=== PATIENT | female | born 1970 | race Caucasian/White ===

== ENCOUNTER 2016-09-22 18:02 | Emergency (ER) | payer MEDICAID, SELFPAY ==
[2016-09-22] MEDS ORDERED: Albuterol/Ipratropium 3.0-0.5 MG/3 ML Neb Soln NEB ONE (19:12)
[2016-09-22] MEDS ORDERED: Albuterol/Ipratropium 3.0-0.5 MG/3 ML Neb Soln ONE (19:14)
[2016-09-22] MEDS ORDERED: predniSONE 20 MG Tab PO ONE (19:27)
[2016-09-22] MEDS ORDERED: Codeine/guaiFENesin 100mg-10 MG/5 ML Soln 118 ML Bottle PO ONE (19:27)
[2016-09-22 20:07] VITALS: BP 116/69
--- NOTE | 2016-09-22 22:00 | ER ---
DATE SEEN: 09/22/2016 TIME SEEN: 1915 hours. CHIEF COMPLAINT: Cough. HISTORY OF PRESENT ILLNESS: This is a 46-year-old female with a cough for 3-4 days. Was in the clinic today treated with azithromycin. Symptoms are worse, coughing causing a headache, productive, and wheezy. She also complains of diarrhea for that period of time. REVIEW OF SYSTEMS: Chronic back pain. PAST MEDICAL HISTORY: Anxiety disorder, chronic back pain, type 2 diabetes, obesity, tobacco abuse. PHYSICAL EXAMINATION: GENERAL: Moderately ill. VITAL SIGNS: Temp is 98, pulse is 79, oxygenation 97% on room air. ENT: Negative. NECK: Supple. CHEST: Some scattered rhonchi. EXTREMITIES: No peripheral edema. MENTAL STATUS: Alert. SKIN: Clammy. LABORATORY DATA: Creatinine 1.4. BNP is less than 5. White cell count 7.0. Chest x-ray was unremarkable. IMPRESSIONS: 1. Acute bronchitis. 2. Diarrhea. 3. Type 2 diabetes. PLAN: One time DuoNeb, then Robitussin with codeine 10 mL every 6 hours p.r.n. and prednisone is 20 mg b.i.d. I advised her to see a physician by Monday. Smoking cessation was also discussed. /[id number] JAMMI[address]/LUZ MARINA
--- NOTE | 2016-09-23 14:07 | CR ---
INDICATION: Chest congestion. CHEST: PA and lateral views of the chest were obtained 09/22/2016. No comparisons were available. Evidence of exogenous obesity is noted. Somewhat flattened diaphragm leaves on the lateral view and increased AP diameter with hyperaeration suggests COPD. What appear to be healed fractures are noted posterolaterally on the left. The heart appeared normal in size and shape. The aorta may be slightly calcified in the arch area. Moderate hypertrophic degenerative changes are noted in the mid thoracic spine with mild to moderate dextroconvex scoliosis of the lower thoracic spine. A definite active infiltrate or effusion was not identified. No evidence of CHF is seen. IMPRESSION: 1. No definite acute process. 2. COPD. 3. ASD aorta. 4. DJD and scoliosis spine. 5. Exogenous obesity. MTDD
== END 2016-09-22 19:40 | disposition home or self-care (01) ==
LOC: FB.ED 18:02
DX: J20.9 Acute bronchitis, unspecified (principal); R19.7 Diarrhea, unspecified; E11.9 Type 2 diabetes mellitus without complications; F41.9 Anxiety disorder, unspecified; E66.9 Obesity, unspecified
CPT/HCPCS: 36415; 71020; 80053; 83880; 85025; 94640; 99285; J7620; A9270-GY

== ENCOUNTER 2019-08-09 19:11 | Emergency (ER) | payer MEDICAID ==
[2019-08-09] MEDS ORDERED: Albuterol 8 GM Inhaler INH ONE (19:12)
[2019-08-09] MEDS ORDERED: Ondansetron 4 MG Tab.DIS PO ONE (19:12)
--- NOTE | 2019-08-09 19:32 | EDM.PDOC ---
ED HPI GENERAL MEDICAL PROBLEM - General Stated Complaint: SOB Time Seen by Provider: 08/09/19 19:32 Source of Information: Reports: Patient History Limitations: Reports: No Limitations - History of Present Illness INITIAL COMMENTS - FREE TEXT/NARRATIVE: 49-year-old female who reports onset of headache about 3-4 days ago and she had a headache with some nasal congestion. The cough and nasal congestion get worse and then for the past 2 days she has had vomiting with diarrhea. The vomiting essentially resolved yesterday but she has had 30 plus diarrhea stools today. She has also had subjective fever with chills. She had vomiting 6 or 7 yesterday. She has been able to keep liquids down today. She also has had increasing cough with wheezing and difficulty breathing today. She has also felt increasingly more weak and dizzy. She finds it hard to even walk or get around because of this. Today she has had chest pain essentially all through the day. It is left-sided and sharp. She rates the pain as a 6/10. It does not radiate. It is worse with breathing and activity. It seems to have come on worse with her cough. She was actually seen initially in the walk-in clinic and was brought over from walking clinic to the emergency department for evaluation. They did do an influenza screen over there and that was negative. There are no other associated signs or symptoms. There are no other modifying factors. Onset: Other (3-4 days ago) Duration: Getting Worse Location: Reports: Chest, Generalized (Body aches) Quality: Reports: Ache, Sharp Severity: Moderate (to severe) Improves with: Reports: Rest Worsens with: Reports: Breathing, Other (Activity), Movement Context: Reports: Other (As above) Associated Symptoms: Reports: Chest Pain, Cough, Diaphoresis (Sweats at times, worse today.), Fever/Chills, Headaches, Loss of Appetite, Malaise, Nausea/ Vomiting, Shortness of Breath, Weakness Treatments [employer]LECT[employer] DES[employer]ER: Reports: Acetaminophen chest Pain Score (Numeric/FACES): 4 - Related Data Allergies Allergy/AdvReac Type Severity Reaction Status Date / Time No Known Allergies Allergy Verified 05/08/16 00:04 Home Meds: Home Meds Lisinopril [Zestril] 100 mg PO DAILY 07/20/13 [History] Sertraline HCl [Zoloft] 200 mg PO DAILY 07/20/13 [History] Simvastatin [Zocor] 20 mg PO DAILY 07/20/13 [History] Zolpidem Tartrate [Ambien] 5 mg PO BEDTIME 07/20/13 [History] hydrOXYzine pamoate [Vistaril] 100 mg PO BEDTIME 07/20/13 [History] metFORMIN [Glucophage] 1,000 mg PO BID 07/20/13 [History] glipiZIDE [Glipizide ER] 10 mg PO DAILY 11/25/15 [History] Pregabalin [Lyrica] 50 mg PO BID 05/08/16 [History] Azithromycin 250 mg PO DAILY 09/22/16 [History] Insulin Glarg,Human.Rec.Analog [Lantus Solostar] 31 units SQ DAILY 09/22/16 [ History] Ondansetron 4 mg PO Q8HR PRN 09/22/16 [History] clonazePAM [Clonazepam] 1 mg PO TID PRN 09/22/16 [History] Doxycycline Monohydrate 100 mg PO BID 7 Days #14 tablet 08/09/19 [Rx] Loperamide [Imodium] 2 mg PO ASDIRECTED #10 cap 08/09/19 [Rx] predniSONE [Prednisone] 50 mg PO QAM #5 tablet 08/09/19 [Rx] Past Medical History HEENT History: Reports: Impaired Vision Cardiovascular History: Reports: Heart Murmur, High Cholesterol, Hypertension Gastrointestinal History: Reports: GERD Genitourinary History: Reports: Diabetic Nephropathy Musculoskeletal History: Reports: Gout Endocrine/Metabolic History: Reports: Diabetes, Type II - Past Surgical History GI Surgical History: Reports: Cholecystectomy, ERCP Female Surgical History: Reports: Section (2) Neurological Surgical History: Reports: Lumbar Spine Musculoskeletal Surgical History: Reports: ORIF (Of left femur) Other Musculoskeletal Surgeries/Procedures:: back fusion Social & Family History - Tobacco Use Smoking Status *Q: Current Every Day Smoker - Caffeine Use Caffeine Use: Reports: Coffee - Alcohol Use Alcohol Use History: No - Living Situation & Occupation Occupation: Disabled Social History Comment: She is here with her daughter. ED ROS GENERAL - Review of Systems Review Of Systems: See Below Constitutional: Reports: Fever, Chills, Diaphoresis, Decreased Appetite HEENT: Reports: Other Respiratory: Reports: Shortness of Breath, Wheezing, Cough (Physical congestion) Cardiovascular: Reports: Chest Pain, Dyspnea on Exertion, Lightheadedness Endocrine: Reports: Fatigue GI/Abdominal: Reports: Diarrhea, Nausea, Vomiting : Reports: No Symptoms Musculoskeletal: Reports: Other (Body aches) Skin: Reports: No Symptoms Neurological: Reports: Headache Hematologic/Lymphatic: Reports: No Symptoms Immunologic: Reports: No Symptoms ED EXAM, GENERAL - Physical Exam Exam: See Below Exam Limited By: No Limitations General Appearance: Alert, Moderate Distress, Obese, Other (But she is awake, alert and appropriate.) Eye Exam: Bilateral Eye: EOMI, Normal Inspection, PERRL Ears: Normal External Exam, Hearing Grossly Normal Ear Exam: Bilateral Ear: Auricle Normal Nose: No Blood, Nasal Drainage Throat/Mouth: Normal Voice, No Airway Compromise, Other (Dry mucous membranes) Head: Atraumatic, Normocephalic Neck: Normal Inspection, Supple, Non-Tender, Full Range of Motion Respiratory/Chest: No Respiratory Distress, No Accessory Muscle Use, Chest Non- Tender, Wheezing (Bilaterally), Other (Air movement was somewhat decreased) Cardiovascular: Normal Peripheral Pulses, Regular Rate, Rhythm, No JVD, No Murmur Peripheral Pulses: 2+: Radial (L), Radial (R), Dorsalis Pedis (L), Dorsalis Pedis (R) GI/Abdominal: Normal Bowel Sounds, Soft, Non-Tender, No Mass Back Exam: Normal Inspection Extremities: Normal Inspection, Normal Range of Motion, Non-Tender, No Pedal Edema, Normal Capillary Refill Neurological: Alert, Oriented, CN II-XII Intact, Normal Cognition, No Motor/ Sensory Deficits Skin Exam: Warm, Intact, Normal Color, No Rash, Diaphoretic (Slight) EKG INTERPRETATION EKG Date: 08/09/19 Time: 19:17 Rhythm: NSR Rate (Beats/Min): 89 [place]: LAD-Left [place] Deviation P-Wave: Present QRS: Normal ST-T: Other (Poor R-wave progression. Normal ST-T's) QT: Normal Comparison: NA - No Prior EKG Course - Vital Signs Last Recorded V/S: Last Vital Signs Temp 36.7 C 08/09/19 23:30 Pulse 86 08/09/19 23:30 Resp 19 08/09/19 23:30 BP 129/72 08/09/19 23:30 Pulse Ox 99 08/09/19 23:30 - Orders/Labs/Meds Orders: Active Orders 24 hr Category Date Time Status EKG Documentation Completion [RC] ASDIRECTED Care 08/09/19 19:49 Active RT Aerosol Therapy [RC] ASDIRECTED Care 08/09/19 19:51 Active Chest 2V [CR] Stat Exams 08/09/19 19:48 Taken Peripheral IV Insertion Adult [OM.PC] Routine Oth 08/09/19 19:48 Ordered EKG 12 Lead [EK] Routine Ther 08/09/19 19:48 Ordered Labs: Laboratory Tests 08/09/19 08/09/19 08/09/19 Range/Units 20:00 20:00 20:00 WBC 5.9 (4.5-12.0) X10-3/uL RBC 5.05 (3.23-5.20) x10(6)uL Hgb 15.3 (11.5-15.5) g/dL Hct 45.3 (30.0-51.3) % MCV 89.7 (80-96) fL MCH 30.2 (27.7-33.6) pg MCHC 33.7 (32.2-35.4) g/dL RDW 14.5 (11.5-15.5) % Plt Count 196 (125-369) X10(3)uL MPV 8.9 (7.4-10.4) fL Neut % (Auto) 65.3 (46-82) % Lymph % (Auto) 26.2 (13-37) % [place] % (Auto) 4.8 (4-12) % Eos % (Auto) 3 (1.0-5.0) % Baso % (Auto) 0 (0-2) % Neut # (Auto) 3.9 (1.6-8.3) # Lymph # (Auto) 1.5 (0.6-5.0) # [place] # (Auto) 0.3 (0.0-1.3) # Eos # (Auto) 0.2 (0.0-0.8) # Baso # (Auto) 0.0 (0.0-0.2) # Sodium 139 (135-145) mmol/L Potassium 3.9 (3.5-5.3) mmol/L Chloride 103 (100-110) mmol/L Carbon Dioxide 21 (21-32) mmol/L BUN 22 H (7-18) mg/dL Creatinine 1.3 H (0.55-1.02) mg/dL Est Cr Clr Drug Dosing 47.62 mL/min Estimated GFR (MDRD) 44 L (>60) BUN/Creatinine Ratio 16.9 (9-20) Glucose 187 H (80-116) mg/dL Calcium 8.8 (8.6-10.2) mg/dL Magnesium 0.9 L* (1.8-2.5) mg/dL Total Bilirubin 0.4 (0.1-1.3) mg/dL AST 41 H (5-25) IU/L ALT 41 H (12-36) U/L Alkaline Phosphatase 47 L (56-112) IU/L Troponin I 11.6 (4.0-60.3) pg/mL C-Reactive Protein 4.7 H* (0.5-0.9) mg/dL NT-Pro-B Natriuret Pep 64 (<=125) pg/mL Total Protein 7.9 (6.0-8.0) g/dL Albumin 3.4 L (3.5-5.2) g/dL Globulin 4.5 g/dL Albumin/Globulin Ratio 0.8 Urine HCG, Qual (NEGATIVE) 08/09/19 Range/Units 20:20 WBC (4.5-12.0) X10-3/uL RBC (3.23-5.20) x10(6)uL Hgb (11.5-15.5) g/dL Hct (30.0-51.3) % MCV (80-96) fL MCH (27.7-33.6) pg MCHC (32.2-35.4) g/dL RDW (11.5-15.5) % Plt Count (125-369) X10(3)uL MPV (7.4-10.4) fL Neut % (Auto) (46-82) % Lymph % (Auto) (13-37) % [place] % (Auto) (4-12) % Eos % (Auto) (1.0-5.0) % Baso % (Auto) (0-2) % Neut # (Auto) (1.6-8.3) # Lymph # (Auto) (0.6-5.0) # [place] # (Auto) (0.0-1.3) # Eos # (Auto) (0.0-0.8) # Baso # (Auto) (0.0-0.2) # Sodium (135-145) mmol/L Potassium (3.5-5.3) mmol/L Chloride (100-110) mmol/L Carbon Dioxide (21-32) mmol/L BUN (7-18) mg/dL Creatinine (0.55-1.02) mg/dL Est Cr Clr Drug Dosing mL/min Estimated GFR (MDRD) (>60) BUN/Creatinine Ratio (9-20) Glucose (80-116) mg/dL Calcium (8.6-10.2) mg/dL Magnesium (1.8-2.5) mg/dL Total Bilirubin (0.1-1.3) mg/dL AST (5-25) IU/L ALT (12-36) U/L Alkaline Phosphatase (56-112) IU/L Troponin I (4.0-60.3) pg/mL C-Reactive Protein (0.5-0.9) mg/dL NT-Pro-B Natriuret Pep (<=125) pg/mL Total Protein (6.0-8.0) g/dL Albumin (3.5-5.2) g/dL Globulin g/dL Albumin/Globulin Ratio Urine HCG, Qual Negative (NEGATIVE) Meds: Medications Discontinued Medications Generic Name Dose Route Start Last Admin Trade Name Freq PRN Reason Stop Dose Admin Albuterol/Ipratropium 3 ml 08/09/19 19:50 08/09/19 20:04 Duoneb 3.0-0.5 Mg/3 Ml NEB 08/09/19 19:51 3 ml ONETIME ONE Administration Doxycycline Hyclate 100 mg 08/09/19 23:05 08/09/19 23:25 Vibra-Tabs PO 08/09/19 23:06 100 mg ONETIME ONE Administration Sodium Chloride 500 mls @ 999 mls/hr 08/09/19 19:50 08/09/19 20:04 Normal Saline IV 08/09/19 20:20 999 mls/hr .BOLUS ONE Administration Sodium Chloride 1,000 mls @ 100 mls/hr 08/09/19 20:00 08/09/19 20:52 Normal Saline IV 100 mls/hr ASDIRECTED VIKAS Administration Magnesium Sulfate 2 gm/ Premix 50 mls @ 150 mls/hr 08/09/19 20:52 08/09/19 21 :09 IV 08/09/19 21:11 150 mls/hr ONETIME ONE Administration Sodium Chloride 1,000 mls @ 999 mls/hr 08/09/19 20:52 08/09/19 21:16 Normal Saline IV 08/09/19 21:52 999 mls/hr .BOLUS ONE Administration Magnesium Sulfate 2 gm/ Premix 50 mls @ 150 mls/hr 08/09/19 22:37 08/09/19 22 :43 IV 08/09/19 22:56 150 mls/hr ONETIME ONE Administration Loperamide HCl 4 mg 08/09/19 23:05 08/09/19 23:25 Imodium PO 08/09/19 23:06 4 mg ONETIME ONE Administration Methylprednisolone Sodium Succinate 125 mg 08/09/19 19:51 08/09/19 20:04 Solu-Medrol IVPUSH 08/09/19 19:52 125 mg ONETIME ONE Administration Ondansetron HCl 4 mg 08/09/19 19:50 08/09/19 20:04 Zofran IVPUSH 08/09/19 19:51 4 mg ONETIME ONE Administration Sodium Chloride 10 ml 08/09/19 19:48 08/09/19 20:05 Saline Flush FLUSH 10 ml ASDIRECTED PRN Administration Keep Vein Open - Radiology Interpretation Free Text/Narrative:: Portable chest x-ray showed no acute disease. - Re-Assessments/Exams Free Text/Narrative Re-Assessment/Exam: 08/09/19 22:20: Patient feels much improved. She has good color to her face. She is in no respiratory distress. Her pulse rate is in the 80s and her O2 saturations 97% on room air. Her magnesium level was quite low and she has received 2 g are ready IV and I we'll now give her 2 more grams of magnesium IV. 08/09/19 23:00: The second 2 g of magnesium are infusing at this point. She is breathing well. She has taken by mouth without any problems. She has had no more diarrhea while here. She appears to be having an exacerbation of COPD with hypomagnesemia. The magnesium has been corrected with IV supplementation. Her breathing is improved with the nebulizer treatment and the Solu-Medrol IV. She was also dehydrated and we have corrected that with IV fluids. The plan will be to discharge the patient. She was given doxycycline 100 mg and Imodium 4 mg by mouth prior to her discharge. I will send prescriptions for doxycycline, prednisone, Imodium. I will send take home packs of Zofran 4 mg ODT and albuterol inhaler. We will also send her home with a spacer to use with the albuterol inhaler. She is improved and stable for discharge at this point. I have strongly advised her to stop smoking cigarettes. She is also to follow her blood sugars more closely while she is on the prednisone. Departure - Departure Time of Disposition: 23:20 Disposition: Home, Self-Care 01 Condition: Good (Improved) Clinical Impression: COPD exacerbation, Dehydration, moderate, Hypomagnesemia, Vomiting and diarrhea - Discharge Information Prescriptions: Doxycycline Monohydrate 100 mg PO BID 7 Days #14 tablet Loperamide [Imodium] 2 mg PO ASDIRECTED #10 cap predniSONE [Prednisone] 50 mg PO QAM #5 tablet Instructions: Chronic Obstructive Pulmonary Disease Exacerbation, [id number] , Nausea and Vomiting, Adult, [id number], How to Use a Metered Dose Inhaler, Dehydration, Adult, [id number], Diarrhea, Adult, [id number], Probiotics Referrals: Lacie Chaney GENETICIST [Primary Care Provider] - Forms: ED Department Discharge Additional Instructions: Your blood tests were reassuringly normal except for a low magnesium level. Your influenza screen was negative. Your chest x-ray showed no pneumonia. You were dehydrated and you improved with the IV fluid therapy as well as the magnesium replacement therapy and the therapy for your wheezing associated with the exacerbation of your COPD. You should increase your fluid intake. You should rest. Stop smoking. Medication as prescribed (doxycycline, prednisone, Imodium, Zofran 4 mg ODT, albuterol inhaler). Be sure to use the spacer that we provided you with the albuterol inhaler to make it more effective. You should also take probiotics daily for the next 10-14 days. Follow-up with your primary doctor. Back to the emergency department for worse breathing, unrelenting vomiting, uncontrolled diarrhea or any other concerning sign or symptom. Sepsis Event Note - Focused Exam Vital Signs: Vital Signs Temp Pulse Resp BP Pulse Ox 08/09/19 23:30 36.7 C 86 19 129/72 99 08/09/19 19:11 36.2 C 96 16 112/65 97 Date Exam was Performed: 08/10/19 Time Exam was Performed: 01:30 - My Orders Last 24 Hours: My Active Orders 08/09/19 19:48 Chest 2V [CR] Stat Peripheral IV Insertion Adult [OM.PC] Routine EKG 12 Lead [EK] Routine 08/09/19 19:49 EKG Documentation Completion [RC] ASDIRECTED 08/09/19 19:51 RT Aerosol Therapy [RC] ASDIRECTED - Assessment/Plan Last 24 Hours: My Active Orders 08/09/19 19:48 Chest 2V [CR] Stat Peripheral IV Insertion Adult [OM.PC] Routine EKG 12 Lead [EK] Routine 08/09/19 19:49 EKG Documentation Completion [RC] ASDIRECTED 08/09/19 19:51 RT Aerosol Therapy [RC] ASDIRECTED
[2019-08-09] MEDS ORDERED: Sodium Chloride 0.9% 10 ML Syringe FLUSH PRN (19:48)
[2019-08-09] MEDS ORDERED: Ondansetron 4 MG/2 ML SDV IVPUSH ONE (19:50)
[2019-08-09] MEDS ORDERED: Sodium Chloride 0.9% 500 ML IV ONE (19:50)
[2019-08-09] MEDS ORDERED: Albuterol/Ipratropium 3.0-0.5 MG/3 ML Neb Soln NEB ONE (19:50)
[2019-08-09] MEDS ORDERED: methylPREDNISolone Sodium Succinate 125 MG/2 ML SDV IVPUSH ONE (19:51)
[2019-08-09] MEDS ORDERED: Sodium Chloride 0.9% 1,000 ML IV SCH (20:00)
[2019-08-09] MEDS ORDERED: Sodium Chloride 0.9% 1,000 ML IV ONE (20:52)
[2019-08-09] MEDS ORDERED: Magnesium Sulfate/Water 2 GM in Premix Bag 1 BAG IV ONE ×2 (20:52→22:37)
[2019-08-09] MEDS ORDERED: Loperamide 2 MG Cap PO ONE (23:05)
[2019-08-09] MEDS ORDERED: Doxycycline 100 MG Tab PO ONE (23:05)
[2019-08-10 00:14] VITALS: BP 129/72; PULSE 86
--- NOTE | 2019-08-12 11:16 | CR ---
INDICATION: Cough and wheezing. CHEST, TWO VIEWS: PA and lateral views of the chest were obtained 08/09/19 and compared with 09/22/16. The heart remains normal in size and shape. A dextroconvex scoliosis of moderate degree is noted at the floor of the lumbar spine. Evidence of exogenous obesity is again noted. Pulmonary markings appear similar to the previous study without a definite active infiltrate or effusion. However, markings are somewhat heavy at the lung bases. Additionally and partly producing the appearance of heavy markings at the lung bases, there is moderately heavy bronchial wall cuffing at the lung bases, which certainly may be on the basis of active peribronchial disease, and should be correlated clinically. This appearance may also be on the basis of fibrosis or lung edema. However, no consolidating pneumonia or effusion was seen. IMPRESSION: 1. Heavy markings at the lung basis with bronchial wall cuffing raise question of possible acute process - active peribronchial disease - correlate clinically. 2. Scoliosis. 3. Exogenous obesity. 4. Mildly prominent AP diameter with slightly flattened diaphragm leaf raising question of obstructive airway disease. MTDD
== END 2019-08-09 23:40 | disposition home or self-care (01) ==
LOC: FB.ED 19:11
DX: J44.1 Chronic obstructive pulmonary disease with (acute) exacerbation (principal); E86.0 Dehydration; E83.42 Hypomagnesemia; R11.10 Vomiting, unspecified; R19.7 Diarrhea, unspecified; F17.200 Nicotine dependence, unspecified, uncomplicated; E11.21 Type 2 diabetes mellitus with diabetic nephropathy; I10 Essential (primary) hypertension; K21.9 Gastro-esophageal reflux disease without esophagitis; Z79.84 Long term (current) use of oral hypoglycemic drugs; Z79.899 Other long term (current) drug therapy
CPT/HCPCS: 36415; 71046; 80053; 81025; 83735; 83880; 84484; 85025; 86140; 93005; 94640; 96361; 96365; 96366; 96375; 99284; A9270; J2405; J2930; J3475; J7030; J7040; J7620-GY

== ENCOUNTER 2021-04-19 16:10 | Emergency (ER) | payer MEDICAID ==
[2021-04-19] MEDS ORDERED: Sodium Chloride 0.9% 1,000 ML IV SCH (16:30)
[2021-04-19 16:32] VITALS: BP 108/80; PULSE 96
[2021-04-19] MEDS ORDERED: Albuterol/Ipratropium 3.0-0.5 MG/3 ML Neb Soln NEB ONE (17:22)
[2021-04-19] MEDS ORDERED: Sodium Chloride 0.9% 1,000 ML IV ONE (17:22)
--- NOTE | 2021-04-19 17:29 | EDM.PDOC ---
ED HPI GENERAL MEDICAL PROBLEM - General Chief Complaint: Respiratory Problem Stated Complaint: SOB Time Seen by Provider: 04/19/21 17:05 Source of Information: Reports: Patient History Limitations: Reports: No Limitations - History of Present Illness INITIAL COMMENTS - FREE TEXT/NARRATIVE: c/o COVID lives alone, pt and daughter went to [place] to a restaurant earlier this week, both tested positive for COVID 4d ago pt stopped smoking in October, has dx COPD and took an alb neb at home earlier today that helps, says she cannot take NSAID on account of her kidneys pt called clinic today with c/o sob, did not have a car, little money for taxi, clinic told pt to come to ED if she had money for only one taxi ride clinic recommended home pulse oximeter, pt cannot afford and unable to check PO at home PO 95% on RA here, initial BP wnl, did possible decrease later altho accuracy of reading uncertain, will give Duoneb and 1 liter fluid bolus here, labs still pending at 17:30 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 2 hrs prior to arrival - Related Data Allergies Allergy/AdvReac Type Severity Reaction Status Date / Time No Known Allergies Allergy Verified 05/08/16 00:04 Home Meds: Home Meds Lisinopril [Zestril] 100 mg PO DAILY 07/20/13 [History] Sertraline HCl [Zoloft] 200 mg PO DAILY 07/20/13 [History] Simvastatin [Zocor] 20 mg PO DAILY 07/20/13 [History] Zolpidem Tartrate [Ambien] 5 mg PO BEDTIME 07/20/13 [History] hydrOXYzine pamoate [Vistaril] 100 mg PO BEDTIME 07/20/13 [History] metFORMIN [Glucophage] 1,000 mg PO BID 07/20/13 [History] glipiZIDE [Glipizide ER] 10 mg PO DAILY 11/25/15 [History] Pregabalin [Lyrica] 50 mg PO BID 05/08/16 [History] Azithromycin 250 mg PO DAILY 09/22/16 [History] Insulin Glarg,Human.Rec.Analog [Lantus Solostar] 81 units SQ DAILY 09/22/16 [History] Ondansetron 4 mg PO Q8HR PRN 09/22/16 [History] clonazePAM [Clonazepam] 1 mg PO TID PRN 09/22/16 [History] Doxycycline Monohydrate 100 mg PO BID 7 Days #14 tablet 08/09/19 [Rx] Loperamide [Imodium] 2 mg PO ASDIRECTED #10 cap 08/09/19 [Rx] Azithromycin 250 mg PO DAILY #4 tablet 04/19/21 [Rx] predniSONE 20 mg PO DAILY #6 tab 04/19/21 [Rx] Past Medical History HEENT History: Reports: Impaired Vision Cardiovascular History: Reports: Heart Murmur, High Cholesterol, Hypertension Gastrointestinal History: Reports: GERD Genitourinary History: Reports: Diabetic Nephropathy 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: Musculoskeletal History: Reports: Gout Endocrine/Metabolic History: Reports: Diabetes, Type II - Past Surgical History GI Surgical History: Reports: Cholecystectomy, ERCP Female Surgical History: Reports: Section (2) Neurological Surgical History: Reports: Lumbar Spine Musculoskeletal Surgical History: Reports: ORIF (Of left femur) Other Musculoskeletal Surgeries/Procedures:: back fusion Social & Family History - Family History Family Medical History: No Pertinent Family History - Caffeine Use Caffeine Use: Reports: Coffee - Living Situation & Occupation Occupation: Disabled ED ROS GENERAL - Review of Systems Review Of Systems: See Below Constitutional: Reports: Fever HEENT: Reports: No Symptoms Respiratory: Reports: Shortness of Breath, Wheezing, Cough Cardiovascular: Denies: Chest Pain Endocrine: Reports: No Symptoms GI/Abdominal: Reports: No Symptoms : Reports: No Symptoms Musculoskeletal: Reports: No Symptoms Skin: Reports: No Symptoms Neurological: Reports: No Symptoms Psychiatric: Reports: No Symptoms Hematologic/Lymphatic: Reports: No Symptoms Immunologic: Reports: No Symptoms ED EXAM, GENERAL - Physical Exam Exam: See Below Exam Limited By: No Limitations General Appearance: Alert, WD/WN Ears: Hearing Grossly Normal Nose: Normal Inspection, Normal Mucosa Throat/Mouth: Normal Inspection, Normal Lips, Normal Voice, No Airway Compromise Head: Atraumatic, Normocephalic Neck: Normal Inspection, Supple, Non-Tender, Full Range of Motion. No: Lymphadenopathy (R), Lymphadenopathy (L) Respiratory/Chest: Chest Non-Tender, Wheezing, Other (fair AE, talks 10-word sentences, anxious at times, scattered insp/exp wheezes with slight inc'd exp phase). No: Rales, Rhonchi Cardiovascular: Regular Rate, Rhythm, No Edema, No Murmur GI/Abdominal: Soft, Non-Tender, No Distention Back Exam: Normal Inspection, Full Range of Motion Extremities: Normal Inspection, Non-Tender Neurological: Alert, Oriented, CN II-XII Intact, Normal Cognition, No Motor/Sensory Deficits Psychiatric: Normal Affect Skin Exam: Warm, Dry, Intact, Normal Color Lymphatic: No Adenopathy #1 Interpretation EKG Date: 04/19/21 Time: 16:10 Rhythm: NSR Rate (Beats/Min): 95 [place]: Normal P-Wave: Present QRS: Normal ST-T: Normal QT: Normal (axis -29, dec'd voltage c/w body habitus (inc'd BMI), no acute S T/ischemic changes) EKG Interpretation Comments: no acute ST/ischemic changes, low voltage c/w body habitus and inc'd BMI Course - Vital Signs Last Recorded V/S: Last Vital Signs Temp 37.4 C 04/19/21 16:31 Pulse 96 04/19/21 16:31 Resp 22 H 04/19/21 16:31 BP 108/80 04/19/21 16:31 Pulse Ox 90 L 04/19/21 18:00 - Orders/Labs/Meds Orders: Active Orders 24 hr Category Date Time Status RT Aerosol Therapy [RC] ASDIRECTED Care 04/19/21 17:23 Ordered Chest 1V Frontal [CR] Stat Exams 04/19/21 19:12 Ordered UA W/MICROSCOPIC [URIN] Stat Lab 04/19/21 16:33 Ordered Magnesium Sulfate/Water [Magnesium Sulfate in Water 2 Med 04/19/21 19:47 Ordered GM/50 ML] 2 gm Premix Bag 1 bag IV ONETIME Sodium Chloride 0.9% [Normal Saline] 1,000 ml Med 04/19/21 16:30 Active IV ASDIRECTED Medication Orders Sodium Chloride (Normal Saline) 1,000 mls @ 999 mls/hr IV ASDIRECTED VIKAS Last Admin: 04/19/21 17:42 Dose: 999 mls/hr Documented by: VINAY Magnesium Sulfate 2 gm/ Premix 50 mls @ 12.5 mls/hr IV ONETIME ONE Stop: 04/19/21 23:46 Last Admin: 04/19/21 20:04 Dose: 12.5 mls/hr Documented by: ARYA Labs: Laboratory Tests 04/19/21 04/19/21 04/19/21 Range/Units 17:35 17:35 17:35 WBC 8.1 (3.0-10.3) x10-3/uL RBC 4.97 (3.60-5.20) x10(6)uL Hgb 14.8 (11.4-15.5) g/dL Hct 45.0 (34.2-48.2) % MCV 90.5 (76.7-100.5) fL MCH 29.7 (23.9-33.9) pg MCHC 32.8 (31.9-34.8) g/dL RDW 14.7 (12.3-16.5) % Plt Count 175 (151-488) x10(3)uL MPV 8.2 (7.1-12.4) fL Neut % (Auto) 52.0 (30.8-76.2) % Lymph % (Auto) 38.1 (18.4-52.1) % [place] % (Auto) 5.4 (4.4-15.7) % Eos % (Auto) 3.8 (0.6-8.1) % Baso % (Auto) 0.7 (0.2-1.5) % Neut # (Auto) 4.2 (1.5-6.3) x10-3/uL Lymph # (Auto) 3.1 (1.0-4.4) x10-3/uL [place] # (Auto) 0.4 (0.3-1.0) x10-3/uL Eos # (Auto) 0.3 (0.0-0.8) x10-3/uL Baso # (Auto) 0.1 (0.0-0.1) x10-3/uL D-Dimer, Quantitative 1.06 H (0.0-0.59) mg/LFEU Sodium 139 (135-145) mmol/L Potassium 4.6 (3.5-5.3) mmol/L Chloride 103 (100-110) mmol/L Carbon Dioxide 21 (21-32) mmol/L BUN 27 H (7-18) mg/dL Creatinine 1.8 H (0.55-1.02) mg/dL Est Cr Clr Drug Dosing TNP Estimated GFR (MDRD) 30 L (>60) BUN/Creatinine Ratio 15.0 (9-20) Glucose 197 H (80-116) mg/dL Calcium 9.0 (8.6-10.2) mg/dL Magnesium (1.8-2.5) mg/dL Total Bilirubin 0.5 (0.1-1.3) mg/dL AST 55 H D (5-25) IU/L ALT 82 H D (12-36) U/L Alkaline Phosphatase 58 (56-112) IU/L Troponin I (4.0-60.3) pg/mL C-Reactive Protein (0.5-0.9) mg/dL Total Protein 7.6 (6.0-8.0) g/dL Albumin 3.1 L (3.5-5.2) g/dL Globulin 4.5 g/dL Albumin/Globulin Ratio 0.7 04/19/21 04/19/21 Range/Units 17:35 17:35 WBC (3.0-10.3) x10-3/uL RBC (3.60-5.20) x10(6)uL Hgb (11.4-15.5) g/dL Hct (34.2-48.2) % MCV (76.7-100.5) fL MCH (23.9-33.9) pg MCHC (31.9-34.8) g/dL RDW (12.3-16.5) % Plt Count (151-488) x10(3)uL MPV (7.1-12.4) fL Neut % (Auto) (30.8-76.2) % Lymph % (Auto) (18.4-52.1) % [place] % (Auto) (4.4-15.7) % Eos % (Auto) (0.6-8.1) % Baso % (Auto) (0.2-1.5) % Neut # (Auto) (1.5-6.3) x10-3/uL Lymph # (Auto) (1.0-4.4) x10-3/uL [place] # (Auto) (0.3-1.0) x10-3/uL Eos # (Auto) (0.0-0.8) x10-3/uL Baso # (Auto) (0.0-0.1) x10-3/uL D-Dimer, Quantitative (0.0-0.59) mg/LFEU Sodium (135-145) mmol/L Potassium (3.5-5.3) mmol/L Chloride (100-110) mmol/L Carbon Dioxide (21-32) mmol/L BUN (7-18) mg/dL Creatinine (0.55-1.02) mg/dL Est Cr Clr Drug Dosing Estimated GFR (MDRD) (>60) BUN/Creatinine Ratio (9-20) Glucose (80-116) mg/dL Calcium (8.6-10.2) mg/dL Magnesium 1.6 L (1.8-2.5) mg/dL Total Bilirubin (0.1-1.3) mg/dL AST (5-25) IU/L ALT (12-36) U/L Alkaline Phosphatase (56-112) IU/L Troponin I 12.8 (4.0-60.3) pg/mL C-Reactive Protein 0.9 (0.5-0.9) mg/dL Total Protein (6.0-8.0) g/dL Albumin (3.5-5.2) g/dL Globulin g/dL Albumin/Globulin Ratio Meds: Medications Generic Name Dose Route Start Last Admin Trade Name Freq PRN Reason Stop Dose Admin Sodium Chloride 1,000 mls @ 999 mls/hr 04/19/21 16:30 04/19/21 17:42 Normal Saline IV 999 mls/hr ASDIRECTED VIKAS Administration Magnesium Sulfate 2 gm/ Premix 50 mls @ 12.5 mls/hr 04/19/21 19:47 04/19/21 20:04 IV 04/19/21 23:46 12.5 mls/hr ONETIME ONE Administration Discontinued Medications Generic Name Dose Route Start Last Admin Trade Name Freq PRN Reason Stop Dose Admin Albuterol/Ipratropium 3 ml 04/19/21 17:22 04/19/21 18:00 Albuterol/Ipratropium 3.0-0.5 Mg/3 Ml Neb Soln NEB 04/19/21 17:23 3 ml ONETIME ONE Administration Sodium Chloride 1,000 mls @ 999 mls/hr 04/19/21 17:22 04/19/21 18:45 Normal Saline IV 04/19/21 18:22 999 mls/hr .BOLUS ONE Administration - Re-Assessments/Exams Free Text/Narrative Re-Assessment/Exam: 04/19/21 20:59 pt dec'd BP that improved after NS 1 liter fluid bolus x 2 she felt much better after Duoneb she was eager to go home as she has chronic LBP and prior low back surgery, could not get comfortable here she tested positive for COVID 4d in parking lot at her [facility] PCP Nohemy Chaney wanted her to go to [place] 3d ago for BAM but pt did not have transportation pt d/w 3 other hospitals: both [facility] and [facility] but not beds available, there is a COVID bed available here but pt declined, plan had been to recheck labs in AM and to give BAM and to monitor vitals tonight, pt not willing to be admitted does have mild inc'd d-dimer c/w COVID, no clinical concerns for PE her wheezing is c/w prior dx of COPD, CxR 1v without discrete infiltrate or effusion, has not smoked in ~6m, does have Duonebs at home low BP c/w moderate dehydration with inc'd creat 1.3 to 1.8, repeat labs and IVFs would be optimum but pt has declined will tx with azithro and prednisone for wheezing and COPD exacerbation, PO 97% at d/c on RA, still with mild insp/exp wheeze with mild inc'd exp phase at d/c Departure - Departure Time of Disposition: 20:44 Disposition: Home, Self-Care 01 Condition: Good Clinical Impression: COVID-19 virus infection, COPD exacerbation, Renal insufficiency, Dehydration - Discharge Information *PRESCRIPTION DRUG MONITORING PROGRAM REVIEWED*: Not Applicable *COPY OF PRESCRIPTION DRUG MONITORING REPORT IN PATIENT CATRINA: Not Applicable Prescriptions: Azithromycin 250 mg PO DAILY #4 tablet predniSONE 20 mg PO DAILY #6 tab Instructions: COVID-19: What to Do If You Are Sick- [facility] (09/16/2020) Referrals: Lacie Chaney, WIRE HARNESS DESIGN ENGINEER [Primary Care Provider] - Forms: ED Department Discharge Additional Instructions: For COVID, return to hospital tomorrow for antibody treatment. For COPD and possible secondary bacterial infection, take the antibiotic 250 mg 1 tab daily for 4 days beginning tomorrow. For wheezing, take prednisone 20 mg 1 tab daily for 6 days beginning tomorrow. For wheezing, use the Duoneb nebulizer 4 times a day. For fever and pain, take acetaminophen 500 mg 2 tabs 4 times for 7 days, longer if needed. Self quarantine at home. Check your oxygen level 2 times a day. Return to ED at any time if your oxyge is 89% or less or you are feeling worse. Contact your PCP 2-3 times per week for 2 weeks with your symptoms. Sepsis Event Note (ED) - Evaluation Sepsis Screening Result: Possible Sepsis Risk - Focused Exam Vital Signs: Vital Signs Temp Pulse Resp BP Pulse Ox Pulse Ox 04/19/21 18:00 90 L 04/19/21 16:31 37.4 C 96 22 H 108/80 94 L - My Orders Last 24 Hours: My Active Orders 04/19/21 16:30 Sodium Chloride 0.9% [Normal Saline] 1,000 ml IV ASDIRECTED 04/19/21 16:33 UA W/MICROSCOPIC [URIN] Stat 04/19/21 17:23 RT Aerosol Therapy [RC] ASDIRECTED 04/19/21 19:12 Chest 1V Frontal [CR] Stat 04/19/21 19:47 Magnesium Sulfate/Water [Magnesium Sulfate in Water 2 GM/50 ML] 2 gm Premix Bag 1 bag IV ONETIME - Assessment/Plan Last 24 Hours: My Active Orders 04/19/21 16:30 Sodium Chloride 0.9% [Normal Saline] 1,000 ml IV ASDIRECTED 04/19/21 16:33 UA W/MICROSCOPIC [URIN] Stat 04/19/21 17:23 RT Aerosol Therapy [RC] ASDIRECTED 04/19/21 19:12 Chest 1V Frontal [CR] Stat 04/19/21 19:47 Magnesium Sulfate/Water [Magnesium Sulfate in Water 2 GM/50 ML] 2 gm Premix Bag 1 bag IV ONETIME
[2021-04-19] MEDS ORDERED: Magnesium Sulfate/Water 2 GM in Premix Bag 1 BAG IV ONE (19:47)
[2021-04-19] MEDS ORDERED: Azithromycin 500 MG Tab PO ONE (20:45)
[2021-04-19] MEDS ORDERED: methylPREDNISolone Sodium Succinate 125 MG/2 ML SDV IVPUSH ONE (20:45)
== END 2021-04-19 23:20 | disposition home or self-care (01) ==
LOC: SUPCPDRO 16:10 → FB.ED 16:10
DX: U07.1 COVID-19 (principal); J44.1 Chronic obstructive pulmonary disease with (acute) exacerbation; E86.0 Dehydration; N28.9 Disorder of kidney and ureter, unspecified; I10 Essential (primary) hypertension; E78.00 Pure hypercholesterolemia, unspecified; E11.21 Type 2 diabetes mellitus with diabetic nephropathy; Z79.84 Long term (current) use of oral hypoglycemic drugs; Z79.4 Long term (current) use of insulin; Z79.899 Other long term (current) drug therapy
CPT/HCPCS: 36415; 71045; 80053; 83735; 84484; 85025; 85379; 86140; 93005; 94640; 96365; 96366; 96375; 99285-25; A9270-GY; J2930; J3475; J7030; J7620-GY

== ENCOUNTER 2022-10-07 07:03 | Day surgery (SDC) | payer MEDICAID ==
[~2022-10-07 07:03] MED LIST: Lactated Ringers 1,000 ML IV SCH; Sodium Chloride 0.9% 10 ML Syringe FLUSH PRN
[2022-10-07] MEDS ORDERED: Midazolam 1 MG/ML 2 ML SDV IV ONE (07:04)
[2022-10-07] MEDS ORDERED: Lidocaine 2% 5 ML SDV INJECT ONE (07:04)
[2022-10-07] MEDS ORDERED: Propofol 200 MG/20 ML SDV IV ONE (07:04)
[2022-10-07] MEDS ORDERED: Simethicone Drops 40 MG/0.6 ML 30 ML Bottle PO ONE (08:29)
[2022-10-07 10:35] VITALS: BP 152/91; PULSE 77
== END 2022-10-07 10:37 | disposition home or self-care (01) ==
LOC: FB.SDS 07:03
PROVIDERS: ATTEND Surgery
DX: D12.6 Benign neoplasm of colon, unspecified (principal); K57.30 Diverticulosis of large intestine without perforation or abscess without bleeding; E11.22 Type 2 diabetes mellitus with diabetic chronic kidney disease; I12.9 Hypertensive chronic kidney disease with stage 1 through stage 4 chronic kidney disease, or unspecified chronic kidney disease; N18.31 Chronic kidney disease, stage 3a; E66.01 Morbid (severe) obesity due to excess calories; K21.9 Gastro-esophageal reflux disease without esophagitis; E78.5 Hyperlipidemia, unspecified; G47.33 Obstructive sleep apnea (adult) (pediatric); F41.1 Generalized anxiety disorder; F33.0 Major depressive disorder, recurrent, mild; G43.009 Migraine without aura, not intractable, without status migrainosus; Z79.899 Other long term (current) drug therapy; Z79.4 Long term (current) use of insulin; Z79.84 Long term (current) use of oral hypoglycemic drugs; Z98.1 Arthrodesis status; Z87.891 Personal history of nicotine dependence; Z68.41 Body mass index [BMI] 40.0-44.9, adult; Z98.890 Other specified postprocedural states
CPT/HCPCS: 00811; 88305; A9270-GY; J2250; J2704; J7120

== ENCOUNTER 2022-10-10 11:47 | Emergency (ER) | payer MEDICAID ==
[2022-10-10] MEDS ORDERED: amLODIPine 10 MG Tab PO ONE (12:11)
[2022-10-10 13:28] VITALS: BP 143/76; PULSE 85
== END 2022-10-10 13:25 | disposition home or self-care (01) ==
LOC: FB.ED 11:47
DX: I12.9 Hypertensive chronic kidney disease with stage 1 through stage 4 chronic kidney disease, or unspecified chronic kidney disease (principal); E11.22 Type 2 diabetes mellitus with diabetic chronic kidney disease; N18.31 Chronic kidney disease, stage 3a; K21.9 Gastro-esophageal reflux disease without esophagitis; E11.40 Type 2 diabetes mellitus with diabetic neuropathy, unspecified; E66.9 Obesity, unspecified; Z68.30 Body mass index [BMI] 30.0-30.9, adult; Z79.899 Other long term (current) drug therapy; Z79.4 Long term (current) use of insulin; Z72.0 Tobacco use
CPT/HCPCS: 99283; A9270

== ENCOUNTER 2024-01-05 09:30 | Emergency (ER) | payer MEDICAID, OTHER ==
[2024-01-05] MEDS: Ondansetron 4 MG/2 ML SDV IVPUSH ONE ×2 (09:53→11:46)
[2024-01-05] MEDS: Sodium Chloride 0.9% 1,000 ML IV ONE ×2 (09:53→11:28)
[2024-01-05 10:01] LABS: BASOPHILS ABSOLUTE AUTO 0.1 x10-3/uL (0.0-0.1); BASOPHILS PERCENT AUTO 0.9 % (0.2-1.5); EOSINOPHILS ABSOLUTE AUTO 0.6 x10-3/uL (0.0-0.8); EOSINOPHILS PERCENT AUTO 6.2 % (0.6-8.1); HEMATOCRIT 49.1 % (34.2-48.2); HEMOGLOBIN 16.2 g/dL (11.4-15.5); LYMPHOCYTES PERCENT AUTO 31.3 % (18.4-52.1); MEAN CORPUSCULAR HGB CONC 33.1 g/dL (31.9-34.8); MEAN CORPUSCULAR VOLUME 93.7 fL (76.7-100.5); MONOCYTES ABSOLUTE AUTO 0.4 x10-3/uL (0.3-1.0); MONOCYTES PERCENT AUTO 4.1 % (4.4-15.7); NEUTROPHILS ABSOLUTE AUTO 5.5 x10-3/uL (1.5-6.3); NEUTROPHILS PERCENT AUTO 57.5 % (30.8-76.2); PLATELET COUNT,PLT 180 x10(3)uL (151-488); RED BLOOD CELL COUNT 5.23 x10(6)uL (3.60-5.20); RED CELL DISTRIBUTION WIDTH 15.2 % (12.3-16.5); WHITE BLOOD CELL COUNT,WBC 9.5 x10-3/uL (3.0-10.3)
[2024-01-05 10:02] LABS: BLOOD UREA NITROGEN,BUN 14 mg/dL (7-18); CARBON DIOXIDE,CO2 22 mmol/L (21-32); CHLORIDE,CL 102 mmol/L (100-110); CREATININE 1.4 mg/dL (0.55-1.02); ESTIMATED GFR 45 mL/min (>60); GLUCOSE RANDOM 305 mg/dL (80-116); POTASSIUM,K 4.2 mmol/L (3.5-5.3); SODIUM,NA 139 mmol/L (135-145)
[2024-01-05 10:08] LABS: A/G RATIO 0.7; ALANINE AMINOTRANSFERASE,ALT 42 U/L (12-36); ALBUMIN 3.2 g/dL (3.5-5.2); ALKALINE PHOSPHATASE 54 IU/L (56-112); ASPARTATE AMNIOTRANSFERASE,AST 38 IU/L (5-25); BILIRUBIN TOTAL 0.5 mg/dL (0.1-1.3); PROTEIN TOTAL,TP 7.5 g/dL (6.0-8.0)
[2024-01-05 10:10] LABS: TROPONIN I 15.2 pg/mL (4.0-60.3)
[2024-01-05] MEDS: Iopamidol 755 Mg/ML 100 ML Bottle IV SCH (10:37)
[2024-01-05 10:54] LABS: BILIRUBIN,URINE NEGATIVE (NEGATIVE); GLUCOSE,URINE 100 mg/dL (NORMAL); KETONES,URINE 15 mg/dL (NEGATIVE); LEUKOCYTE ESTERASE,URINE SMALL (NEGATIVE); NITRITE,URINE POSITIVE (NEGATIVE); OCCULT BLOOD,URINE MODERATE (NEGATIVE); PROTEIN,URINE 500 mg/dL (NEGATIVE); UROBILINOGEN,URINE NORMAL (NEGATIVE)
[2024-01-05 10:59] LABS: APPEARANCE,URINE SLIGHTLY CLOUDY (CLEAR); COLOR,URINE YELLOW (YELLOW)
[2024-01-05 11:00] LABS: BACTERIA,URINE MANY (NS); RBC,URINE 0-5 (0-5); SQUAMOUS EPITHELIAL CELLS,UR FEW (NS,R,O)
[2024-01-05] MEDS: cefTRIAXone 1 GM Vial IVPUSH SCH (11:28)
[2024-01-05] MEDS: cefTRIAXone 1 GM in Sodium Chloride 0.9% 50 ML IV ONE (11:48)
[2024-01-05 13:00] VITALS: BP 124/68; PULSE 82
== END 2024-01-05 12:45 | disposition home or self-care (01) ==
LOC: FB.ED 09:30
DX: N39.0 Urinary tract infection, site not specified (principal); E86.0 Dehydration; E11.65 Type 2 diabetes mellitus with hyperglycemia; I10 Essential (primary) hypertension; K21.9 Gastro-esophageal reflux disease without esophagitis; E11.40 Type 2 diabetes mellitus with diabetic neuropathy, unspecified; Z90.49 Acquired absence of other specified parts of digestive tract; Z79.4 Long term (current) use of insulin; Z79.899 Other long term (current) drug therapy; Z79.84 Long term (current) use of oral hypoglycemic drugs
CPT/HCPCS: 74177; 80053; 81001; 83605; 83690; 84484; 85025; 87086; 87088; 87186; 93005; 96361; 96374; 96375; 96376; 99284; J0696; J2405; J7030; Q9967

== ENCOUNTER 2024-01-25 20:50 | Emergency (ER) | payer MEDICAID ==
[2024-01-25] MEDS ORDERED: Sodium Chloride 0.9% 10 ML Syringe FLUSH PRN (21:07)
[2024-01-25] MEDS: Ketorolac 30 MG/ML SDV IVPUSH ONE (21:21)
[2024-01-25] MEDS: Sodium Chloride 0.9% 1,000 ML IV SCH (21:21)
[2024-01-25] MEDS: Ondansetron 4 MG/2 ML SDV IVPUSH ONE (21:21)
[2024-01-25 21:49] LABS: BASOPHILS ABSOLUTE AUTO 0.1 x10-3/uL (0.0-0.1); BASOPHILS PERCENT AUTO 0.7 % (0.2-1.5); EOSINOPHILS ABSOLUTE AUTO 0.4 x10-3/uL (0.0-0.8); EOSINOPHILS PERCENT AUTO 5.2 % (0.6-8.1); HEMATOCRIT 48.4 % (34.2-48.2); HEMOGLOBIN 16.1 g/dL (11.4-15.5); LYMPHOCYTES ABSOLUTE AUTO 3.2 x10-3/uL (1.0-4.4); LYMPHOCYTES PERCENT AUTO 39.3 % (18.4-52.1); MEAN CORPUSCULAR HEMOGLOBIN 30.5 pg (23.9-33.9); MEAN CORPUSCULAR HGB CONC 33.3 g/dL (31.9-34.8); MEAN CORPUSCULAR VOLUME 91.7 fL (76.7-100.5); MEAN PLATELET VOLUME 9.3 fL (7.1-12.4); MONOCYTES ABSOLUTE AUTO 0.3 x10-3/uL (0.3-1.0); MONOCYTES PERCENT AUTO 3.9 % (4.4-15.7); NEUTROPHILS ABSOLUTE AUTO 4.2 x10-3/uL (1.5-6.3); NEUTROPHILS PERCENT AUTO 50.9 % (30.8-76.2); PLATELET COUNT,PLT 182 x10(3)uL (151-488); RED BLOOD CELL COUNT 5.28 x10(6)uL (3.60-5.20); RED CELL DISTRIBUTION WIDTH 14.7 % (12.3-16.5); WHITE BLOOD CELL COUNT,WBC 8.2 x10-3/uL (3.0-10.3)
[2024-01-25 21:53] LABS: BILIRUBIN,URINE NEGATIVE (NEGATIVE); GLUCOSE,URINE 50 mg/dL (NORMAL); KETONES,URINE 15 mg/dL (NEGATIVE); LEUKOCYTE ESTERASE,URINE NEGATIVE (NEGATIVE); NITRITE,URINE NEGATIVE (NEGATIVE); OCCULT BLOOD,URINE MODERATE (NEGATIVE); PROTEIN,URINE 500 mg/dL (NEGATIVE); UROBILINOGEN,URINE NORMAL (NEGATIVE)
[2024-01-25 21:54] LABS: BLOOD UREA NITROGEN,BUN 13 mg/dL (7-18); CALCIUM 9.2 mg/dL (8.6-10.2); CARBON DIOXIDE,CO2 24 mmol/L (21-32); CHLORIDE,CL 103 mmol/L (100-110); CREATININE 1.3 mg/dL (0.55-1.02); ESTIMATED GFR 49 mL/min (>60); GLUCOSE RANDOM 255 mg/dL (80-116); POTASSIUM,K 3.3 mmol/L (3.5-5.3); SODIUM,NA 144 mmol/L (135-145)
[2024-01-25 21:59] LABS: A/G RATIO 0.7; ALANINE AMINOTRANSFERASE,ALT 44 U/L (12-36); ALBUMIN 3.4 g/dL (3.5-5.2); ALKALINE PHOSPHATASE 48 IU/L (56-112); ASPARTATE AMNIOTRANSFERASE,AST 33 IU/L (5-25); BILIRUBIN TOTAL 0.6 mg/dL (0.1-1.3)
[2024-01-25 22:03] LABS: APPEARANCE,URINE CLEAR (CLEAR); COLOR,URINE YELLOW (YELLOW)
[2024-01-25 22:05] LABS: BACTERIA,URINE FEW (NS); EPITHELIAL CELLS,URINE FEW; RBC,URINE 0-5 (0-5); WBC,URINE 0-5 (0-5)
[2024-01-26 03:40] VITALS: BP 142/82; PULSE 83
== END 2024-01-25 23:30 | disposition home or self-care (01) ==
LOC: FB.ED 20:50
DX: U07.1 COVID-19 (principal); I12.9 Hypertensive chronic kidney disease with stage 1 through stage 4 chronic kidney disease, or unspecified chronic kidney disease; N18.9 Chronic kidney disease, unspecified; E11.22 Type 2 diabetes mellitus with diabetic chronic kidney disease; K21.9 Gastro-esophageal reflux disease without esophagitis; Z79.4 Long term (current) use of insulin; Z79.899 Other long term (current) drug therapy; Z79.84 Long term (current) use of oral hypoglycemic drugs
CPT/HCPCS: 36415; 71045; 80053; 81001; 84484; 85025; 87040; 96361; 96374; 96375; 99284-25; J1885; J2405; J7030; U0002

== ENCOUNTER 2024-05-02 19:05 | Inpatient (IN) | payer MEDICAID ==
[2024-05-02] MEDS ORDERED: Ondansetron 4 MG/2 ML SDV IVPUSH ONE (19:39)
[2024-05-02 20:03] LABS: BASOPHILS ABSOLUTE AUTO 0.1 x10-3/uL (0.0-0.1); MEAN CORPUSCULAR HEMOGLOBIN 30.2 pg (23.9-33.9); MONOCYTES ABSOLUTE AUTO 0.4 x10-3/uL (0.3-1.0); NEUTROPHILS ABSOLUTE AUTO 7.3 x10-3/uL (1.5-6.3); WHITE BLOOD CELL COUNT,WBC 11.4 x10-3/uL (3.0-10.3)
[2024-05-02] MEDS: Lactated Ringers 1,000 ML IV SCH ×2 (20:09→23:30)
[2024-05-02 20:11] LABS: BASOPHILS PERCENT AUTO 1.2 % (0.2-1.5); EOSINOPHILS ABSOLUTE AUTO 0.3 x10-3/uL (0.0-0.8); EOSINOPHILS PERCENT AUTO 2.9 % (0.6-8.1); HEMOGLOBIN 17.8 g/dL (11.4-15.5); LYMPHOCYTES ABSOLUTE AUTO 3.3 x10-3/uL (1.0-4.4); LYMPHOCYTES PERCENT AUTO 28.7 % (18.4-52.1); MEAN CORPUSCULAR HGB CONC 33.1 g/dL (31.9-34.8); MEAN CORPUSCULAR VOLUME 91.2 fL (76.7-100.5); MONOCYTES PERCENT AUTO 3.4 % (4.4-15.7); NEUTROPHILS PERCENT AUTO 63.8 % (30.8-76.2); PLATELET COUNT,PLT 221 x10(3)uL (151-488); RED BLOOD CELL COUNT 5.92 x10(6)uL (3.60-5.20); RED CELL DISTRIBUTION WIDTH 14.1 % (12.3-16.5)
[2024-05-02 20:16] LABS: A/G RATIO 0.7; ALANINE AMINOTRANSFERASE,ALT 38 U/L (12-36); ALBUMIN 3.6 g/dL (3.5-5.2); ALKALINE PHOSPHATASE 62 IU/L (56-112); ASPARTATE AMNIOTRANSFERASE,AST 30 IU/L (5-25); BILIRUBIN TOTAL 0.5 mg/dL (0.1-1.3); BLOOD UREA NITROGEN,BUN 17 mg/dL (7-18); BUN/CREATININE RATIO 12.1 (9-20); CARBON DIOXIDE,CO2 24 mmol/L (21-32); CHLORIDE,CL 99 mmol/L (100-110); CREATININE 1.4 mg/dL (0.55-1.02); ESTIMATED GFR 45 mL/min (>60); GLUCOSE RANDOM 307 mg/dL (80-116); POTASSIUM,K 4.2 mmol/L (3.5-5.3); PROTEIN TOTAL,TP 8.5 g/dL (6.0-8.0); SODIUM,NA 138 mmol/L (135-145)
[2024-05-02] MEDS: LORazepam 2 MG/ML SDV IVPUSH ONE ×3 (20:16→23:09)
[2024-05-02 20:27] LABS: BILIRUBIN,URINE NEGATIVE (NEGATIVE); GLUCOSE,URINE 100 mg/dL (NORMAL); KETONES,URINE 15 mg/dL (NEGATIVE); LEUKOCYTE ESTERASE,URINE NEGATIVE (NEGATIVE); NITRITE,URINE NEGATIVE (NEGATIVE); OCCULT BLOOD,URINE MODERATE (NEGATIVE); PROTEIN,URINE 500 mg/dL (NEGATIVE); UROBILINOGEN,URINE NORMAL (NEGATIVE)
[2024-05-02 20:32] LABS: APPEARANCE,URINE CLEAR (CLEAR); COLOR,URINE YELLOW (YELLOW); RBC,URINE 0-5 (0-5); SQUAMOUS EPITHELIAL CELLS,UR FEW (NS,R,O); WBC,URINE 0-5 (0-5)
[2024-05-02 20:32] LABS: MAGNESIUM 0.9 mg/dL (1.8-2.5)
[2024-05-02 20:33] LABS: BACTERIA,URINE FEW (NS); COARSE GRANULAR CASTS,URINE OCCASIONAL (NS)
[2024-05-02 20:44] LABS: INFLUENZA A NAA NEGATIVE (NEGATIVE); INFLUENZA B NAA NEGATIVE (NEGATIVE)
[2024-05-02 20:46] LABS: CORONAVIRUS COVID-19 NAA NEGATIVE (NEGATIVE)
[2024-05-02] MEDS ORDERED: rOPINIRole 0.5 MG Tab PO SCH (21:00)
[2024-05-02] MEDS ORDERED: Pregabalin 100 MG Cap PO SCH (21:00)
[2024-05-02] MEDS: Acetaminophen/HYDROcodone 325-10 MG Tab PO ONE (21:06)
[2024-05-02] MEDS ORDERED: 50% Dextrose in Water 50 ML Syringe IVPUSH PRN (22:48)
[2024-05-02] MEDS ORDERED: Glucagon,Human Recombinant 1 MG Vial IM PRN (22:48)
[2024-05-02] MEDS: Zolpidem 5 MG Tab PO PRN (23:13)
[2024-05-02] MEDS: buPROPion 150 MG Tab.ER PO SCH (23:13)
[2024-05-02] MEDS: Insulin Glargine,Human Rec. Analog 100 Units/ML 3 ML Pen SUBCUT SCH (23:15)
[2024-05-02] MEDS: Pregabalin 100 MG Cap PO SCH (23:31)
[2024-05-02] MEDS: Lisinopril 10 MG Tab PO ONE (23:34)
[2024-05-02] MEDS: rOPINIRole 0.5 MG Tab PO SCH (23:37)
[2024-05-02] MEDS: Magnesium Sulfate 3 GM in Sodium Chloride 0.9% 100 ML IV ONE (23:50)
[2024-05-03 06:07] LABS: BASOPHILS ABSOLUTE AUTO 0.1 x10-3/uL (0.0-0.1); BASOPHILS PERCENT AUTO 0.7 % (0.2-1.5); EOSINOPHILS ABSOLUTE AUTO 0.3 x10-3/uL (0.0-0.8); EOSINOPHILS PERCENT AUTO 3.6 % (0.6-8.1); HEMOGLOBIN 15.1 g/dL (11.4-15.5); LYMPHOCYTES ABSOLUTE AUTO 3.4 x10-3/uL (1.0-4.4); LYMPHOCYTES PERCENT AUTO 42.1 % (18.4-52.1); MEAN CORPUSCULAR HEMOGLOBIN 30.5 pg (23.9-33.9); MEAN CORPUSCULAR HGB CONC 33.6 g/dL (31.9-34.8); MEAN CORPUSCULAR VOLUME 90.8 fL (76.7-100.5); MEAN PLATELET VOLUME 8.8 fL (7.1-12.4); MONOCYTES ABSOLUTE AUTO 0.5 x10-3/uL (0.3-1.0); NEUTROPHILS ABSOLUTE AUTO 3.9 x10-3/uL (1.5-6.3); NEUTROPHILS PERCENT AUTO 47.6 % (30.8-76.2); PLATELET COUNT,PLT 164 x10(3)uL (151-488); RED BLOOD CELL COUNT 4.96 x10(6)uL (3.60-5.20); RED CELL DISTRIBUTION WIDTH 14.2 % (12.3-16.5); WHITE BLOOD CELL COUNT,WBC 8.1 x10-3/uL (3.0-10.3)
[2024-05-03 06:15] LABS: A/G RATIO 0.7; ALANINE AMINOTRANSFERASE,ALT 27 U/L (12-36); ALBUMIN 2.8 g/dL (3.5-5.2); ALKALINE PHOSPHATASE 48 IU/L (56-112); ASPARTATE AMNIOTRANSFERASE,AST 24 IU/L (5-25); BILIRUBIN TOTAL 0.3 mg/dL (0.1-1.3); BLOOD UREA NITROGEN,BUN 15 mg/dL (7-18); CALCIUM 9.1 mg/dL (8.6-10.2); CARBON DIOXIDE,CO2 31 mmol/L (21-32); CHLORIDE,CL 103 mmol/L (100-110); EST CRCL DRUG DOSING (CG) 61.61 mL/min; ESTIMATED GFR 68 mL/min (>60); GLUCOSE RANDOM 183 mg/dL (80-116); PHOSPHORUS 4.1 mg/dL (2.6-4.6); POTASSIUM,K 3.3 mmol/L (3.5-5.3); PROTEIN TOTAL,TP 6.6 g/dL (6.0-8.0); SODIUM,NA 141 mmol/L (135-145)
[2024-05-03] MEDS: Acetaminophen/HYDROcodone 325-10 MG Tab PO PRN (07:05)
[2024-05-03] MEDS: Diltiazem 120 MG Cap.CD PO SCH (08:54)
[2024-05-03] MEDS: Lisinopril 10 MG Tab PO SCH (08:55)
[2024-05-03] MEDS ORDERED: Lisinopril 10 MG Tab PO SCH (09:00)
[2024-05-03] MEDS: Potassium Chloride 20 MEQ Tab.ER PO ONE (10:05)
[2024-05-03] MEDS: LORazepam 2 MG/ML SDV IV PRN (10:18)
[2024-05-03] MEDS: Acetaminophen 325 MG Tab PO PRN (10:31)
[2024-05-03] MEDS: Insulin Lispro 100 Unit/ML 3 ML KwikPen SUBCUT SCH ×2 (11:47→18:15)
[2024-05-03] MEDS ORDERED: Albuterol/Ipratropium 3.0-0.5 MG/3 ML Neb Soln INH PRN (15:38)
[2024-05-03] MEDS ORDERED: Albuterol 6.7 GM Inhaler INH PRN (15:38)
[2024-05-03] MEDS ORDERED: Meclizine 25 MG Tab PO PRN (15:50)
[2024-05-03] MEDS ORDERED: Ondansetron 4 MG Tab.DIS PO PRN (15:50)
[2024-05-03] MEDS ORDERED: SUMAtriptan 50 MG Tab PO PRN (15:50)
[2024-05-03] MEDS ORDERED: Naloxone 4 MG Nasal Spray NAS PRN (15:50)
[2024-05-03] MEDS ORDERED: Formoterol/Mometasone 200-5 MCG 8.8 GM Inhaler INH PRN (15:57)
[2024-05-03] MEDS ORDERED: Formoterol/Mometasone 100-5 MCG 8.8 GM Inhaler INH PRN (15:59)
[2024-05-03] MEDS: ClonazePAM 1 MG Tab PO PRN (16:20)
[2024-05-03] MEDS: Allopurinol 300 MG Tab PO SCH (16:20)
[2024-05-03] MEDS: busPIRone 15 MG Tab PO SCH (16:20)
[2024-05-03] MEDS: Insulin Glargine,Human Rec. Analog 100 Units/ML 3 ML Pen SUBCUT SCH (21:19)
[2024-05-03] MEDS: Enoxaparin 40 MG/0.4 ML Syringe SUBCUT SCH (21:27)
[2024-05-03] MEDS: Pregabalin 100 MG Cap PO SCH (21:27)
[2024-05-03] MEDS: Topiramate 50 MG Tab PO SCH (21:28)
[2024-05-03] MEDS ORDERED: Lisinopril 10 MG Tab PO ONE (23:21)
[2024-05-04 06:50] LABS: BASOPHILS ABSOLUTE AUTO 0.1 x10-3/uL (0.0-0.1); BASOPHILS PERCENT AUTO 1.1 % (0.2-1.5); EOSINOPHILS ABSOLUTE AUTO 0.4 x10-3/uL (0.0-0.8); EOSINOPHILS PERCENT AUTO 5.5 % (0.6-8.1); HEMATOCRIT 42.9 % (34.2-48.2); HEMOGLOBIN 14.2 g/dL (11.4-15.5); LYMPHOCYTES ABSOLUTE AUTO 2.9 x10-3/uL (1.0-4.4); LYMPHOCYTES PERCENT AUTO 42.3 % (18.4-52.1); MEAN CORPUSCULAR HEMOGLOBIN 30.1 pg (23.9-33.9); MEAN CORPUSCULAR HGB CONC 33.1 g/dL (31.9-34.8); MEAN CORPUSCULAR VOLUME 91.2 fL (76.7-100.5); MEAN PLATELET VOLUME 8.4 fL (7.1-12.4); MONOCYTES ABSOLUTE AUTO 0.3 x10-3/uL (0.3-1.0); MONOCYTES PERCENT AUTO 4.6 % (4.4-15.7); NEUTROPHILS ABSOLUTE AUTO 3.1 x10-3/uL (1.5-6.3); NEUTROPHILS PERCENT AUTO 46.5 % (30.8-76.2); PLATELET COUNT,PLT 150 x10(3)uL (151-488); RED BLOOD CELL COUNT 4.71 x10(6)uL (3.60-5.20); WHITE BLOOD CELL COUNT,WBC 6.8 x10-3/uL (3.0-10.3)
[2024-05-04 06:54] LABS: BLOOD UREA NITROGEN,BUN 12 mg/dL (7-18); BUN/CREATININE RATIO 10.9 (9-20); CALCIUM 8.7 mg/dL (8.6-10.2); CARBON DIOXIDE,CO2 31 mmol/L (21-32); CHLORIDE,CL 102 mmol/L (100-110); CREATININE 1.1 mg/dL (0.55-1.02); ESTIMATED GFR 60 mL/min (>60); GLUCOSE RANDOM 211 mg/dL (80-116); MAGNESIUM 1.3 mg/dL (1.8-2.5); POTASSIUM,K 3.6 mmol/L (3.5-5.3); SODIUM,NA 140 mmol/L (135-145)
[2024-05-04] MEDS: Pantoprazole 40 MG Tab.CR PO SCH (08:26)
[2024-05-04] MEDS: Rosuvastatin 20 MG Tab PO SCH (08:27)
[2024-05-04] MEDS: Magnesium Oxide 400 MG Tab PO SCH (08:27)
[2024-05-04] MEDS: Escitalopram 20 MG Tab PO SCH (08:27)
[2024-05-04] MEDS: Cephalexin 250 MG Cap PO SCH (08:27)
[2024-05-04] MEDS: buPROPion 150 MG Tab.ER PO SCH (08:29)
[2024-05-04 08:35] VITALS: PULSE 70
[2024-05-04] MEDS: Magnesium Sulfate/Water Premix 1 GM in Premix Bag 1 BAG IV ONE (09:20)
[2024-05-04] MEDS ORDERED: Insulin Glargine,Human Rec. Analog 100 Units/ML 3 ML Pen SUBCUT ONE (11:25)
[2024-05-04] MEDS ORDERED: Insulin Lispro 100 Unit/ML 3 ML KwikPen SUBCUT ONE (11:25)
[2024-05-04 11:38] VITALS: BP 120/75
== END 2024-05-04 11:26 | disposition home or self-care (01) | DRG 641 ==
LOC: FB.ED 19:05 → FB.MS 22:12
PROVIDERS: ADMIT Student in an Organized Health Care Education/Training Program; ATTEND Internal Medicine
DX: E83.42 Hypomagnesemia (principal); E87.20 Acidosis, unspecified; K21.9 Gastro-esophageal reflux disease without esophagitis; J44.9 Chronic obstructive pulmonary disease, unspecified; E11.22 Type 2 diabetes mellitus with diabetic chronic kidney disease; F41.0 Panic disorder [episodic paroxysmal anxiety]; E87.6 Hypokalemia; F32.A Depression, unspecified; E86.0 Dehydration; G43.909 Migraine, unspecified, not intractable, without status migrainosus; I12.9 Hypertensive chronic kidney disease with stage 1 through stage 4 chronic kidney disease, or unspecified chronic kidney disease; E11.42 Type 2 diabetes mellitus with diabetic polyneuropathy; H54.7 Unspecified visual loss; Z79.4 Long term (current) use of insulin; Z79.82 Long term (current) use of aspirin; Z90.49 Acquired absence of other specified parts of digestive tract; Z98.890 Other specified postprocedural states; Z87.891 Personal history of nicotine dependence; Z79.899 Other long term (current) drug therapy
CPT/HCPCS: 0240U; 36415; 80048; 80053; 81001; 82947; 83605; 83735; 84100; 84484; 85025; 85379; 87040; 93005; 93010; 96361; 96365; 96375; 96376; 99222; 99232; 99238; 99285-25; A9270-GY; J1650; J1815; J1815-GY; J2060; J3475; J3490; J7120

== ENCOUNTER 2024-05-07 17:19 | Emergency (ER) | payer MEDICAID ==
[2024-05-07] MEDS: Sodium Chloride 0.9% 1,000 ML IV ONE (17:47)
[2024-05-07] MEDS: Prochlorperazine 10 MG/2 ML SDV IVPUSH ONE (17:47)
[2024-05-07 18:02] LABS: BASOPHILS ABSOLUTE AUTO 0.1 x10-3/uL (0.0-0.1); BASOPHILS PERCENT AUTO 0.8 % (0.2-1.5); EOSINOPHILS ABSOLUTE AUTO 0.5 x10-3/uL (0.0-0.8); EOSINOPHILS PERCENT AUTO 5.5 % (0.6-8.1); HEMATOCRIT 49.7 % (34.2-48.2); HEMOGLOBIN 16.6 g/dL (11.4-15.5); LYMPHOCYTES ABSOLUTE AUTO 3.1 x10-3/uL (1.0-4.4); LYMPHOCYTES PERCENT AUTO 32.9 % (18.4-52.1); MEAN CORPUSCULAR HEMOGLOBIN 30.5 pg (23.9-33.9); MEAN CORPUSCULAR HGB CONC 33.5 g/dL (31.9-34.8); MEAN CORPUSCULAR VOLUME 90.9 fL (76.7-100.5); MEAN PLATELET VOLUME 9.2 fL (7.1-12.4); MONOCYTES ABSOLUTE AUTO 0.4 x10-3/uL (0.3-1.0); MONOCYTES PERCENT AUTO 4.4 % (4.4-15.7); NEUTROPHILS ABSOLUTE AUTO 5.3 x10-3/uL (1.5-6.3); NEUTROPHILS PERCENT AUTO 56.4 % (30.8-76.2); PLATELET COUNT,PLT 178 x10(3)uL (151-488); RED BLOOD CELL COUNT 5.47 x10(6)uL (3.60-5.20); RED CELL DISTRIBUTION WIDTH 13.9 % (12.3-16.5); WHITE BLOOD CELL COUNT,WBC 9.5 x10-3/uL (3.0-10.3)
[2024-05-07 18:03] LABS: BLOOD UREA NITROGEN,BUN 14 mg/dL (7-18); BUN/CREATININE RATIO 11.7 (9-20); CARBON DIOXIDE,CO2 27 mmol/L (21-32); CHLORIDE,CL 100 mmol/L (100-110); CREATININE 1.2 mg/dL (0.55-1.02); EST CRCL DRUG DOSING (CG) 49.35 mL/min; ESTIMATED GFR 54 mL/min (>60); GLUCOSE RANDOM 286 mg/dL (80-116); POTASSIUM,K 3.8 mmol/L (3.5-5.3); SODIUM,NA 137 mmol/L (135-145)
[2024-05-07 18:09] LABS: A/G RATIO 0.8; ALANINE AMINOTRANSFERASE,ALT 58 U/L (12-36); ALBUMIN 3.7 g/dL (3.5-5.2); ALKALINE PHOSPHATASE 65 IU/L (56-112); ASPARTATE AMNIOTRANSFERASE,AST 48 IU/L (5-25); BILIRUBIN TOTAL 0.6 mg/dL (0.1-1.3); MAGNESIUM 1.3 mg/dL (1.8-2.5); PHOSPHORUS 2.5 mg/dL (2.6-4.6); PROTEIN TOTAL,TP 8.3 g/dL (6.0-8.0)
[2024-05-07] MEDS: LORazepam 2 MG/ML SDV IVPUSH ONE (18:25)
[2024-05-07 19:01] LABS: APPEARANCE,URINE CLEAR (CLEAR); BILIRUBIN,URINE NEGATIVE (NEGATIVE); COLOR,URINE YELLOW (YELLOW); GLUCOSE,URINE 100 mg/dL (NORMAL); KETONES,URINE NEGATIVE (NEGATIVE); LEUKOCYTE ESTERASE,URINE NEGATIVE (NEGATIVE); NITRITE,URINE NEGATIVE (NEGATIVE); OCCULT BLOOD,URINE TRACE (NEGATIVE); PROTEIN,URINE 500 mg/dL (NEGATIVE); RBC,URINE 0-5 (0-5); SQUAMOUS EPITHELIAL CELLS,UR OCCASIONAL (NS,R,O); UROBILINOGEN,URINE NORMAL (NEGATIVE); WBC,URINE 0-5 (0-5)
[2024-05-07 19:02] LABS: BACTERIA,URINE RARE (NS)
[2024-05-07] MEDS: Iopamidol 755 Mg/ML 100 ML Bottle IV SCH (19:09)
[2024-05-07 19:31] LABS: INFLUENZA A NAA NEGATIVE (NEGATIVE); INFLUENZA B NAA NEGATIVE (NEGATIVE); RESPIRATORY SYNCYTIAL VIR NAA NEGATIVE (NEGATIVE)
[2024-05-07 19:38] LABS: CORONAVIRUS COVID-19 NAA NEGATIVE (NEGATIVE)
[2024-05-07] MEDS: Labetalol 20 MG/4 ML Syringe IVPUSH ONE ×2 (19:39→20:11)
[2024-05-07] MEDS: Acetaminophen 500 MG Tab PO ONE (20:13)
[2024-05-07 20:33] VITALS: BP 182/96
[2024-05-07 20:34] VITALS: PULSE 84
== END 2024-05-07 20:38 | disposition home or self-care (01) ==
LOC: FB.ED 17:19
DX: R11.2 Nausea with vomiting, unspecified (principal); R74.02 Elevation of levels of lactic acid dehydrogenase [LDH]; R74.01 Elevation of levels of liver transaminase levels; I12.9 Hypertensive chronic kidney disease with stage 1 through stage 4 chronic kidney disease, or unspecified chronic kidney disease; N18.9 Chronic kidney disease, unspecified; J44.9 Chronic obstructive pulmonary disease, unspecified; K21.9 Gastro-esophageal reflux disease without esophagitis; E11.22 Type 2 diabetes mellitus with diabetic chronic kidney disease; E11.42 Type 2 diabetes mellitus with diabetic polyneuropathy; Z90.49 Acquired absence of other specified parts of digestive tract; Z79.51 Long term (current) use of inhaled steroids; Z79.4 Long term (current) use of insulin; Z79.899 Other long term (current) drug therapy
CPT/HCPCS: 0241U; 36415; 74177; 80053; 81001; 82947; 83605; 83690; 83735; 84100; 84484; 85025; 93005; 93010; 96361; 96374; 96375; 96376; 99284; A9270; J0780; J1920; J2060; J7030; Q9967